=== PATIENT | female | born 2000 | race Caucasian/White ===

== ENCOUNTER → 2020-02-07 | Outpatient (CLI) | payer OTHER ==
[~2020-02-07] MED LIST: METHACHOLINE KIT (J7674) INH ONE
--- NOTE | 2020-02-07 15:24 | PFTRPT ---
Site: [facility], [address] [place], [address] ID: [id number] Name: LUPE CASAREZ Visit Date: 02/07/2020 Second ID: [id number] Referring Doctor: Robby Rhodes MD Reviewing Doctor: Baltazar Barillas MD Behavioral Therapy Coordinator: Cleo Abbott Age: 19 : 2000 Sex: Female Race: Height: 59.00 Inches Weight: 106.00 Lbs BSA: 1.41 Order IDs: [id number] Requested Test(s): <RESP-PFT.BROCHOPROV> Diagnosis: R05 of albuterol for post bronchodilator. Review Status: Not Reviewed Pre-Bronch Post-Bronch Pred Actual %Pred Actual %Chng SPIROMETRY FVC (L) 3.20 3.09 96 3.11 FEV1 (L) 2.85 2.38 83 2.37 FEV1/FVC (%) 86 77 89 76 FEF 25% (L/sec) 5.38 4.55 84 5.52 21 FEF 50% (L/sec) 4.75 2.37 49 2.30 -2 FEF 75% (L/sec) 2.10 0.79 37 0.86 8 FEF 25-75% (L/sec) 3.44 1.93 56 1.90 -1 FEF Max (L/sec) 6.12 7.07 115 6.23 -11 FIVC (L) 2.96 2.71 -8 FIF 50% (L/sec) 3.86 2.93 75 2.22 -24 FIF Max (L/sec) 3.23 2.93 -9 Expiratory Time (sec) 7.22 6.78 -6 Back Extrap Vol (L) 0.07 0.09 26 Time To FEFmax (sec) 0.066 0.095 43
== END ==
LOC: M CARPUL 14:18
PROVIDERS: ATTEND Allergy & Immunology Allergy
DX: J45.40 Moderate persistent asthma, uncomplicated (principal); R05 Cough; R06.00 Dyspnea, unspecified

== ENCOUNTER → 2020-09-25 | Outpatient (CLI) | payer OTHER ==
[2020-09-25 14:13] LABS: SWEAT TEST LFT ARM 18.9 MEQ CL/L (0.0-40.0); SWEAT TEST RT ARM 22.6 MEQ CL/L (0.0-40.0); WEIGHT OF SWEAT LFT ARM 52.8 MG; WEIGHT OF SWEAT RT ARM 52.3 MG
== END ==
LOC: M LAB 09:38
PROVIDERS: ATTEND Allergy & Immunology Allergy
DX: J45.40 Moderate persistent asthma, uncomplicated (principal)